=== PATIENT | male | born 1950 | race Two or more races ===

== ENCOUNTER 2017-07-25 16:01 | Outpatient (CLI) | payer OTHER | END 2017-07-25 16:04 | disposition home or self-care (01) | LOC: RAD 501 16:01 → RAD 16:01 | DX: M54.5 Low back pain (principal) ==

== ENCOUNTER 2018-04-10 16:28 | Outpatient (CLI) | payer OTHER | END 2018-04-10 16:34 | disposition home or self-care (01) | LOC: RAD 16:28 | DX: M23.307 Other meniscus derangements, unspecified meniscus, left knee (principal) ==

== ENCOUNTER 2018-04-16 09:24 | Outpatient (CLI) | payer OTHER | END 2018-04-16 09:37 | disposition home or self-care (01) | LOC: MRI 09:24 | DX: M23.307 Other meniscus derangements, unspecified meniscus, left knee (principal) | CPT/HCPCS: 73721 ==

== ENCOUNTER 2018-04-24 14:47 | Outpatient (CLI) | payer OTHER | END 2018-04-24 14:59 | disposition home or self-care (01) | LOC: NUCLEAR 14:47 | DX: M81.0 Age-related osteoporosis without current pathological fracture (principal) ==

== ENCOUNTER 2018-07-09 10:00 | Outpatient (CLI) | payer OTHER | END 2018-07-09 16:58 | disposition home or self-care (01) | LOC: RAD 10:00 | DX: J44.1 Chronic obstructive pulmonary disease with (acute) exacerbation (principal); J32.8 Other chronic sinusitis ==

== ENCOUNTER 2021-04-04 07:56 | Outpatient (CLI) | payer OTHER | END 2021-04-04 07:58 | disposition home or self-care (01) | LOC: NUCLEAR 07:56 | PROVIDERS: ATTEND Internal Medicine | DX: R07.89 Other chest pain (principal) | CPT/HCPCS: 78452; 93017; A9500 ==